=== PATIENT | male | born 1980 | race Two or more races ===

== ENCOUNTER 2020-02-12 13:20 | Inpatient (IN) | payer OTHER ==
[~2020-02-12] VITALS: Ht 177.8 cm; Wt 86.6 kg
[2020-02-12] MEDS ORDERED: FLUC100T PO (15:37)
[2020-02-12] MEDS ORDERED: BICT1TAB PO (15:37)
[2020-02-12] MEDS ORDERED: PredniSONE 20 MG TABLET PO ONE (16:00)
[2020-02-12] MEDS ORDERED: PredniSONE 10 MG TABLET PO ONE (16:00)
[2020-02-12] MEDS ORDERED: FLUCONAZOLE 200 MG TABLET PO ONE (16:00)
[2020-02-12 16:32] LABS: BASOPHILS % (AUTO) 0.7 % (0.0-2.0); EOSINOPHILS % (AUTO) 0.4 % (1.0-6.0); HEMATOCRIT 45.1 % (41-53); HEMOGLOBIN 14.8 g/dL (13.5-17.5); LYMPHOCYTES # (AUTO) 1.5 K/uL (1.0-4.8); LYMPHOCYTES % (AUTO) 15.5 % (22.0-44.0); MEAN CORPUSCULAR HGB CONC 32.8 G/dL (31.0-37.0); MEAN CORPUSCULAR VOLUME 95 fL (80-100); MONOCYTES # (AUTO) 0.9 K/uL (0.1-1.0); MONOCYTES % (AUTO) 9.7 % (2.0-9.0); NEUTROPHILS # (AUTO) 7.1 K/uL (1.8-7.7); NEUTROPHILS % (AUTO) 73.7 % (40.0-70.0); PLATELET COUNT (AUTO) 310 K/uL (150-450); RED BLOOD CELL COUNT(AUTO) 4.78 MIL/uL (4.50-5.90); RED CELL DISTRIBUTION WIDTH 15.6 % (11.5-14.5)
[2020-02-12 16:43] LABS: COVID AG,FIA SOURCE NASOPHARYNGEAL
[2020-02-12 16:46] LABS: ANION GAP 8 mmol/L (8-16); CARBON DIOXIDE 28 mmol/L (22-29); CHLORIDE 102 mmol/L (98-107); CREATININE 1.11 mg/dL (0.60-1.30); GLOMERULAR FILTR. RATE CALC > 60 mL/min (>60); GLUCOSE,RANDOM 93 mg/dL (70-110); POTASSIUM 3.4 mmol/L (3.5-5.1); SODIUM SERUM 138 mmol/L (136-145); UREA NITROGEN, BLOOD 13 mg/dL (7-18)
[2020-02-12 16:52] LABS: ALANINE AMINOTRANSFERASE 21 U/L (12-78); ALBUMIN 3.6 g/dL (3.4-5.0); ALKALINE PHOSPHATASE 77 U/L (46-116); ASPARTATE AMINOTRANSFERASE 11 U/L (15-37); BILIRUBIN,TOTAL 0.5 mg/dL (0.1-1.0); TOTAL PROTEIN, SERUM 7.2 g/dL (6.4-8.2)
[2020-02-12] MEDS ORDERED: PRED15SO12 PO (16:59)
[2020-02-12] MEDS ORDERED: MAG HYDROX/AL HYDROX/SIMETH ES 30 ML SUSPENSION UDCUP PO PRN (17:00)
[2020-02-12] MEDS ORDERED: DOCUSATE SODIUM 100 MG CAPSULE PO PRN (17:00)
[2020-02-12] MEDS ORDERED: LOPERAMIDE HCL 2 MG CAPSULE PO PRN (17:00)
[2020-02-12] MEDS ORDERED: NICOTINE 14 MG/24 HOUR PATCH TD PRN (17:00)
[2020-02-12] MEDS ORDERED: ONDANSETRON HCL 4 MG TABLET PO PRN (17:00)
[2020-02-12] MEDS ORDERED: MAGNESIUM HYDROXIDE SUSPENSION 30 ML UDCUP PO PRN (17:00)
[2020-02-12] MEDS ORDERED: ALBUTEROL SULFATE HFA 90 MCG/PUFF 8 GM INHALER IH PRN (17:00)
[2020-02-12] MEDS ORDERED: PETROLATUM,WHITE 28 GM JELLY TP PRN (17:00)
[2020-02-12] MEDS ORDERED: CloNIDine HCL 0.1 MG TABLET PO PRN (17:00)
[2020-02-12] MEDS ORDERED: GuaiFENesin/D-METHORPHAN [SUGAR-FREE] 200-20MG/10 ML SYRUP UDCUP PO PRN (17:00)
[2020-02-12] MEDS ORDERED: FLUC200T PO (17:44)
[2020-02-12] MEDS ORDERED: POTASSIUM CHLORIDE 20 MEQ ER TABLET PO ONE (19:45)
[2020-02-12 20:05] VITALS: BP 128/79
[2020-02-12] MEDS: ACETAMINOPHEN 325 MG TABLET PO PRN (20:15)
[2020-02-13 04:41] VITALS: BP 124/91
[2020-02-13 06:43] LABS: ANION GAP 9 mmol/L (8-16); CALCIUM, TOTAL 8.7 mg/dL (8.8-10.5); CARBON DIOXIDE 27 mmol/L (22-29); CHLORIDE 103 mmol/L (98-107); GLOMERULAR FILTR. RATE CALC > 60 mL/min (>60); GLUCOSE,RANDOM 90 mg/dL (70-110); POTASSIUM 4.2 mmol/L (3.5-5.1); SODIUM SERUM 139 mmol/L (136-145); UREA NITROGEN, BLOOD 15 mg/dL (7-18)
[2020-02-13 08:24] VITALS: BP 124/85
[2020-02-13] MEDS: BICTEGRAV/EMTRICIT/TENOFOV ALA 50-200-25 MG TABLET PO SCH (09:17)
[2020-02-13] MEDS: IBUPROFEN 400 MG TABLET PO PRN (17:29)
[2020-02-13 19:53] VITALS: BP 121/69
[2020-02-13] MEDS: DAPSONE 25 MG TABLET PO SCH (20:53)
[2020-02-14] MEDS: IBUPROFEN 400 MG TABLET PO PRN (03:14)
[2020-02-14] MEDS: ACETAMINOPHEN 325 MG TABLET PO PRN (03:14)
[2020-02-14 08:11] VITALS: BP 137/89
[2020-02-14] MEDS: BICTEGRAV/EMTRICIT/TENOFOV ALA 50-200-25 MG TABLET PO SCH (08:50)
[2020-02-14] MEDS: DAPSONE 25 MG TABLET PO SCH ×2 (08:53→20:10)
[2020-02-14] MEDS ORDERED: PredniSONE 5 MG TABLET PO SCH (09:00)
[2020-02-14] MEDS ORDERED: FLUCONAZOLE 200 MG TABLET PO SCH (09:00)
[2020-02-14] MEDS ORDERED: OMEP20 PO (13:59)
[2020-02-14] MEDS ORDERED: THAL50CA PO (14:00)
[2020-02-14] MEDS ORDERED: CALC-1105 PO (14:01)
[2020-02-14] MEDS ORDERED: [UNRECOGNIZED DRUG - CODE] PO (14:02)
[2020-02-14] MEDS ORDERED: PRED5 PO (14:04)
[2020-02-14 19:35] VITALS: BP 138/91
[2020-02-15 05:06] VITALS: BP 134/90
[2020-02-15] MEDS: IBUPROFEN 400 MG TABLET PO PRN (05:42)
== END 2020-02-15 06:15 | DRG 641 ==
LOC: EMS 13:22 → 6N 16:58
PROVIDERS: ADMIT Internal Medicine; ATTEND Internal Medicine
DX: E87.6 Hypokalemia (principal); Z79.899 Other long term (current) drug therapy
CPT/HCPCS: 70450; 87426